=== PATIENT | male | born 2000 | race Two or more races ===

== ENCOUNTER 2022-02-22 13:16 | Emergency (ER) | payer OTHER | END 2022-02-22 14:33 | disposition home or self-care (01) | LOC: CSHERS 13:16 | DX: S63.501A Unspecified sprain of right wrist, initial encounter (principal); V00.131A Fall from skateboard, initial encounter ==

== ENCOUNTER 2022-02-26 18:03 | Emergency (ER) | payer OTHER | END 2022-02-26 20:56 | disposition home or self-care (01) | LOC: CSHERS 18:03 | DX: M25.531 Pain in right wrist (principal) | CPT/HCPCS: 99283 ==

== ENCOUNTER 2022-11-07 09:25 | Emergency (ER) | payer OTHER | END 2022-11-07 09:47 | disposition left against medical advice (07) | LOC: CSHERS 09:25 | DX: Z53.21 Procedure and treatment not carried out due to patient leaving prior to being seen by health care provider (principal) ==

== ENCOUNTER 2022-11-08 18:59 | Emergency (ER) | payer OTHER ==
[2022-11-08 19:43] LABS: #Monocytes 0.5 10x3/uL (0.0-1.1); #Neutrophils 3.8 10x3/uL (1.5-8.4); %Basophils 0.7 % (0.0-2.0); %Eosinophils 0.5 % (0.0-6.0); %Lymphocytes 23.5 % (18.0-47.0); %Monocytes 9.2 % (0.0-10.0); %Neutrophils 65.8 % (40.0-75.0); Hematocrit 42.1 % (38.8-50.0); Hemoglobin 14.8 g/dL (13.5-17.5); Mean Corpuscular HGB CONC 35.2 g/dL (32.0-36.0); Mean Corpuscular Hemoglobin 32.5 pg (27.0-33.0); Mean Corpuscular Volume 92.3 fl (81.2-95.1); Mean Platelet Volume 9.8 fl (7.4-10.4); Platelet Count 260 10x3/uL (150-450); RBC Distribution Width 10.4 % (11.5-14.5); Red Blood Cell (RBC) Count 4.56 10x6/uL (4.32-5.72); White Blood Cell (WBC) Count 5.8 10x3/uL (3.5-10.5)
[2022-11-08 19:48] LABS: Bilirubin Neg (Negative); Blood, Urine Negative (Negative); Clarity Clear (Clear); Glucose, Urine (Dipstick) Normal (Negative); Ketone, Urine 50 mg/dL (Negative); Leukocyte Negative (Negative); Nitrite Negative (Negative); Protein, Urine (Dipstick) 30 mg/dl (Neg-Trace); Urobilinogen Normal mg/dL (Less than 2)
[2022-11-08 19:55] LABS: ALT (SGPT) 18 U/L (8-55); AST (SGOT) 21 U/L (5-34); Albumin 4.8 g/dL (3.5-5.0); Alkaline Phosphatase 91 U/L (40-110); Anion Gap 18 mmol/L (10-20); BUN (Urea Nitrogen) 17 mg/dL (8.9-20.6); Bilirubin, Total 1.4 mg/dL (0.2-1.2); Calc. Creatinine Clearance 0 mL/min (70-130); Calcium 9.1 mg/dL (7.8-10.44); Carbon Dioxide 21 mmol/L (22-29); Chloride 95 mmol/L (98-107); Estimated GFR 111; Globulin 2.7 g/dL (2.4-3.5); Glucose 96 mg/dL (70-105); Potassium 3.6 mmol/L (3.5-5.1); Protein, Total 7.5 g/dL (6.0-8.3); Sodium 130 mmol/L (136-145)
[2022-11-08 19:56] LABS: Acetaminophen Less than 10 mcg/mL (10.0-30.0); Alcohol Less than 10.0 mg/dL (Less than 10); Salicylate Less than 8.0 mg/dL (15.0-30.0)
[2022-11-08 19:57] LABS: Bacteria/HPF None Seen HPF (None Seen); CAUTI Indications for Culture Alt mental st,lethar; RBC/HPF None Seen HPF (0-3); Squamous Epithelial None Seen HPF (0-3); Urine Culture Reflex No No; WBC/HPF None Seen HPF (0-3)
[2022-11-08 19:58] LABS: Amphetamine Not Detected (NotDetected); Barbiturates Screen Not Detected (NotDetected); Benzodiazepine Screen Not Detected (NotDetected); Cocaine Metabolite Screen Not Detected (NotDetected); Methadone Not Detected (NotDetected); Methamphetamine Not Detected (NotDetected); Opiate Screen Not Detected (NotDetected); Oxycodone Screen Not Detected (NotDetected); Phencyclidine (PCP) Not Detected (NotDetected); THC/Cannabinoid Screen Detected (NotDetected); Tricyclic Screen Not Detected (NotDetected)
== END 2022-11-09 01:00 ==
LOC: CSHERS 18:59
DX: G47.00 Insomnia, unspecified (principal); F22 Delusional disorders; F17.290 Nicotine dependence, other tobacco product, uncomplicated
CPT/HCPCS: 36415; 80053; 80306; 80307; 81001; 85025; 99285

== ENCOUNTER 2022-11-26 12:35 | Emergency (ER) | payer OTHER | END 2022-11-26 15:18 | disposition home or self-care (01) | LOC: CSHERS 12:35 | DX: Z02.79 Encounter for issue of other medical certificate (principal); F17.290 Nicotine dependence, other tobacco product, uncomplicated | CPT/HCPCS: 99284 ==

== ENCOUNTER 2022-12-03 10:56 | Emergency (ER) | payer OTHER | END 2022-12-03 11:49 | disposition left against medical advice (07) | LOC: CSHERS 10:56 | DX: Z53.21 Procedure and treatment not carried out due to patient leaving prior to being seen by health care provider (principal) ==

== ENCOUNTER 2022-12-03 16:20 | Emergency (ER) | payer OTHER | END 2022-12-03 16:58 | disposition left against medical advice (07) | LOC: CSHERS 16:20 | DX: Z53.21 Procedure and treatment not carried out due to patient leaving prior to being seen by health care provider (principal) ==